=== PATIENT | male | born 1995 | race Caucasian/White ===

== ENCOUNTER 2020-12-20 00:30 | Inpatient (IN) | payer OTHER ==
[~2020-12-20] VITALS: Ht 175.3 cm; Wt 113.0 kg
[2020-12-20 02:02] VITALS: BP 116/72
[2020-12-20] MEDS: IV NORMAL SALINE 1000ML BAG 1,000 ML IV SCH (02:16)
[2020-12-20 04:39] LABS: BASO % 0 % (0-3); EOS % 0 % (0-3); HEMATOCRIT 40.2 % (39.0-53.0); HEMOGLOBIN 13.8 g/dL (13.0-17.5); LYMPH # 1.8 x10^3/uL (1.0-4.8); LYMPH % 19 % (24-48); MEAN CORPUSCULAR HEMOGLOBIN 30 pg (25-35); MEAN CORPUSCULAR HGB CONC 34 g/dL (31-37); MEAN CORPUSCULAR VOLUME 86 fL (79-100); MONO # 0.8 x10^3/uL (0.0-1.1); MONO % 8 % (0-9); NEUT # 6.7 x10^3/uL (1.8-7.7); NEUT % 72 % (31-73); PLATELET COUNT 176 x10^3/uL (140-400); RED BLOOD COUNT 4.66 x10^6/uL (4.30-5.70); RED CELL DISTRIBUTION WIDTH 12.9 % (11.5-14.5); WHITE BLOOD COUNT 9.4 x10^3/uL (4.0-11.0)
[2020-12-20 05:17] LABS: ALBUMIN 3.4 g/dL (3.4-5.0); CALCIUM 8.5 mg/dL (8.5-10.1); CREATININE 1.1 mg/dL (0.7-1.3); GFR 82.2; POTASSIUM 3.8 mmol/L (3.5-5.1); TOTAL BILIRUBIN 0.8 mg/dL (0.2-1.0); TOTAL PROTEIN 6.8 g/dL (6.4-8.2)
[2020-12-20] MEDS: PIPERACILLIN/TAZOBACTAM 3.375 GM in IV NORMAL SALINE 50ML 50 ML IV SCH ×3 (06:04→18:17)
[2020-12-20 06:16] VITALS: BP 110/66
--- NOTE | 2020-12-20 07:06 | PDOC1 ---
History and Physical Date of Admission Date of Admission DATE: 12/20/20 TIME: 07:01 Identification/Chief Complaint Chief Complaint Abdominal pain Source Source: Patient History of Present Illness History of Present Illness Mr Minaya is a 25-year-old male with no PMHx who presented to ED at [facility] in [place], [place] with report of right lower quadrant abdominal discomfort with associated nausea around 1630 on 12/19/2020. Has had decreased appetite and not eaten anything since 1100 12/19/2020. Patient reports pain worse with any movement. Initially started as a cramping sharp pain and now is dull and achy. Denies trauma. Denies dysuria or hematuria. Denies history of abdominal surgery. He is a non-smoker occasionally drinks alcohol does not use illicit drugs. 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 Is not vaccinated against COVID-19 has had no recent travel or sick sick contacts. Had a normal formed BM around 1700 on 2020-12-19 Vital signs temp 98.1 F pulse 92 bpm respirations 18/min 30 saturations 99% on room air blood pressure 129/65 Labs WBC 17.2 Hb 14.3 platelets 189, NA 136 K3.6 BUN 13 CR 1.1, glucose 105, lactate 1 LFTs within normal laboratory limits urinalysis bland rapid COVID-19 negative and Covid PCR negative. CT scan of abdomen pelvis with concerns of early appendicitis Toradol improved pain. IV fluid hydration given and started on zosyn. Given concern for acute appendicitis transferred to [facility] for general surgery consultation. Past Medical History Cardiovascular: No pertinent hx Past Surgical History Past Surgical History: No pertinent history Family History Family History: Diabetes (Father) Social History Smoke: No ALCOHOL: occassional Drugs: None Current Medications Current Medications Current Medications Ondansetron HCl (Zofran) 4 mg PRN Q6HRS PRN IVP NAUSEA/VOMITING; Start 12/20/20 at 01:45 Fentanyl Citrate (Fentanyl 2ml Vial) 25 mcg PRN Q3HRS PRN IVP PAIN; Start 12/20/20 at 01:45 Sodium Chloride 1,000 ml @ 75 mls/hr [id number] IV Last administered on 12/20/20at 02:16; Start 12/20/20 at 01:45 Piperacillin Sod/ Tazobactam Sod 3.375 gm/Sodium Chloride 50 ml @ 100 mls/hr Q6HRS IV Last administered on 12/20/20at 06:04; Start 12/20/20 at 06:00 Allergies Allergies: Coded Allergies: cephalexin (Verified Allergy, Unknown, 12/20/20) TOLERATES ZOSYN ROS General: YES: Fatigue, Malaise, Appetite; No: Chills, Night Sweats, Other PSYCHOLOGICAL ROS: No: Anxiety, Behavioral Disorder, Concentration difficultie, Decreased libido, Depression, Disorientation, Hallucinations, Hostility, Irritablity, Memory difficulties, Mood Swings, Obsessive thoughts, Physical abuse, Sexual abuse, Sleep disturbances, Suicidal ideation, Other Eyes: No Blurry vision, No Decreased vision, No Double vision, No Dry eyes, No Excessive tearing, No Eye Pain, No Itchy Eyes, No Loss of vision, No Photophobia, No Scotomata, No Uses contacts, No Uses glasses, No Other HEENT: No: Heacaches, Visual Changes, Hearing change, Nasal congestion, Nasal discharge, Oral lesions, Sinus pain, Sore Throat, Epistaxis, Sneezing, Snoring, Tinnitus, Vertigo, Vocal changes, Other ALLERGY AND IMMUNOLOGY: No: Hives, Insect Bite Sensitivity, Itchy/Watery Eyes, Nasal Congestion, Post Nasal Drip, Seasonal Allergies, Other Hematological and Lymphatic: No: Bleeding Problems, Blood Clots, Blood Transfusions, Brusing, Night Sweats, Pallor, Swollen Lymph Nodes, Other ENDOCRINE: No: Breast Changes, Galactorrhea, Hair Pattern Changes, Hot Flashes, Malaise/lethargy, Mood Swings, Palpitations, Polydipsia/polyuria, Skin Changes, Temperature Intolerance, Unexpected Weight Changes, Other Breast: No New/Changing Breast Lumps, No Nipple changes, No Nipple discharge, No Other Respiratory: No: Cough, Hemoptysis, Orthopnea, Pleuritic Pain, Shortness of breath, SOB with excertion, Sputum Changes, Stridor, Tachypnea, Wheezing, Other Cardiovascular: No Chest Pain, No Palpitations, No Orthopnea, No Paroxysmal Noc. Dyspnea, No Edema, No Lt Headedness, No Other Gastrointestinal: Yes Nausea, Yes Abdominal Pain; No Vomiting, No Diarrhea, No Constipation, No Melena, No Hematochezia, No Other Genitourinary: No Dysuria, No Frequency, No Incontinence, No Hematuria, No Retention, No Discharge, No Urgency, No Pain, No Flank Pain, No Other, No , No , No , No , No , No , No Musculoskeletal: No Gait Disturbance, No Joint Pain, No Joint Stiffness, No Joint Swelling, No Muscle Pain, No Muscular Weakness, No Pain In:, No Swelling In:, No Other Neurological: No Behavorial Changes, No Bowel/Bladder ControlChng, No Co nfusion, No Dizziness, No Gait Disturbance, No Headaches, No Impaired Coord/balance, No Memory Loss, No Numbness/Tingling, No Seizures, No Speech Problems, No Tremors, No Visual Changes, No Weakness, No Other Skin: No Dry Skin, No Eczema, No Hair Changes, No Lumps, No Mole Changes, No Mottling, No Nail Changes, No Pruritus, No Rash, No Skin Lesion Changes, No Other, No Acne Physical Exam General: Alert, Oriented X3, Cooperative, moderate distress HEENT: Atraumatic, PERRLA, EOMI, Mucous membr. moist/pink Lungs: Clear to auscultation, Normal air movement Heart: S1S2, RRR, no thrills, no rubs, no gallops, no murmurs Abdomen: Normal bowel sounds, Soft, No hepatosplenomegaly, Other (RLQ pain) Rectal Exam: not examined Extremities: No clubbing, No cyanosis, No edema, Normal pulses, No tenderness/swelling Skin: No rashes, No breakdown, No significant lesion Neuro: Normal gait, Normal speech, Strength at 5/5 X4 ext, Normal tone, Sensation intact, Cranial nerves 3-12 NL, Reflexes 2+ Psych/Mental Status: Mental status NL, Mood NL Vitals Vitals Vital Signs Date Time Temp Pulse Resp B/P (MAP) Pulse Ox O2 Delivery O2 Flow Rate FiO2 12/20/20 06:16 98.5 76 18 110/66 (81) 97 Room Air 98.5 Labs Labs Laboratory Tests Test 12/20/20 03:20 12/20/20 03:25 Sodium Level 140 mmol/L (136-145) Potassium Level 3.8 mmol/L (3.5-5.1) Chloride Level 103 mmol/L (98-107) Carbon Dioxide Level 30 mmol/L (21-32) Anion Gap 7 (6-14) Blood Urea Nitrogen 12 mg/dL (8-26) Creatinine 1.1 mg/dL (0.7-1.3) Estimated GFR (Cockcroft-Gault) 82.2 BUN/Creatinine Ratio 11 (6-20) Glucose Level 103 mg/dL (70-99) Calcium Level 8.5 mg/dL (8.5-10.1) Total Bilirubin 0.8 mg/dL (0.2-1.0) Aspartate Amino Transf (AST/SGOT) 15 U/L (15-37) Alanine Aminotransferase (ALT/SGPT) 18 U/L (16-63) Alkaline Phosphatase 59 U/L (46-116) Total Protein 6.8 g/dL (6.4-8.2) Albumin 3.4 g/dL (3.4-5.0) Albumin/Globulin Ratio 1.0 (1.0-1.7) White Blood Count 9.4 x10^3/uL (4.0-11.0) Red Blood Count 4.66 x10^6/uL (4.30-5.70) Hemoglobin 13.8 g/dL (13.0-17.5) Hematocrit 40.2 % (39.0-53.0) Mean Corpuscular Volume 86 fL (79-100) Mean Corpuscular Hemoglobin 30 pg (25-35) Mean Corpuscular Hemoglobin Concent 34 g/dL (31-37) Red Cell Distribution Width 12.9 % (11.5-14.5) Platelet Count 176 x10^3/uL (140-400) Neutrophils (%) (Auto) 72 % (31-73) Lymphocytes (%) (Auto) 19 % (24-48) Monocytes (%) (Auto) 8 % (0-9) Eosinophils (%) (Auto) 0 % (0-3) Basophils (%) (Auto) 0 % (0-3) Neutrophils # (Auto) 6.7 x10^3/uL (1.8-7.7) Lymphocytes # (Auto) 1.8 x10^3/uL (1.0-4.8) Monocytes # (Auto) 0.8 x10^3/uL (0.0-1.1) Eosinophils # (Auto) 0.0 x10^3/uL (0.0-0.7) Basophils # (Auto) 0.0 x10^3/uL (0.0-0.2) Laboratory Tests Test 12/20/20 03:20 12/20/20 03:25 Sodium Level 140 mmol/L (136-145) Potassium Level 3.8 mmol/L (3.5-5.1) Chloride Level 103 mmol/L (98-107) Carbon Dioxide Level 30 mmol/L (21-32) Anion Gap 7 (6-14) Blood Urea Nitrogen 12 mg/dL (8-26) Creatinine 1.1 mg/dL (0.7-1.3) Estimated GFR (Cockcroft-Gault) 82.2 BUN/Creatinine Ratio 11 (6-20) Glucose Level 103 mg/dL (70-99) Calcium Level 8.5 mg/dL (8.5-10.1) Total Bilirubin 0.8 mg/dL (0.2-1.0) Aspartate Amino Transf (AST/SGOT) 15 U/L (15-37) Alanine Aminotransferase (ALT/SGPT) 18 U/L (16-63) Alkaline Phosphatase 59 U/L (46-116) Total Protein 6.8 g/dL (6.4-8.2) Albumin 3.4 g/dL (3.4-5.0) Albumin/Globulin Ratio 1.0 (1.0-1.7) White Blood Count 9.4 x10^3/uL (4.0-11.0) Red Blood Count 4.66 x10^6/uL (4.30-5.70) Hemoglobin 13.8 g/dL (13.0-17.5) Hematocrit 40.2 % (39.0-53.0) Mean Corpuscular Volume 86 fL (79-100) Mean Corpuscular Hemoglobin 30 pg (25-35) Mean Corpuscular Hemoglobin Concent 34 g/dL (31-37) Red Cell Distribution Width 12.9 % (11.5-14.5) Platelet Count 176 x10^3/uL (140-400) Neutrophils (%) (Auto) 72 % (31-73) Lymphocytes (%) (Auto) 19 % (24-48) Monocytes (%) (Auto) 8 % (0-9) Eosinophils (%) (Auto) 0 % (0-3) Basophils (%) (Auto) 0 % (0-3) Neutrophils # (Auto) 6.7 x10^3/uL (1.8-7.7) Lymphocytes # (Auto) 1.8 x10^3/uL (1.0-4.8) Monocytes # (Auto) 0.8 x10^3/uL (0.0-1.1) Eosinophils # (Auto) 0.0 x10^3/uL (0.0-0.7) Basophils # (Auto) 0.0 x10^3/uL (0.0-0.2) Images Images CT scan of the abdomen and pelvis with contrast 12/19/2020 FINDINGS: Images through the lung bases demonstrate minimal dependent subsegmental atelectasis bilaterally. The liver, spleen, pancreas, adrenal glands and kidneys are within normal limits. The abdominal aorta tapers normally. The gallbladder is contracted. No free fluid or free air is seen within the abdomen. There is no evidence of bowel obstruction. The appendix is prominent measuring 8 mm in diameter. A small amount of free fluid is seen within the pelvis. These findings could be seen with early acute appendicitis. Clinical correlation is recommended. No abnormal fluid collection is seen to suggest evidence of an abscess. Images through the pelvis demonstrate the urinary bladder distended with urine. Small amount of free fluid is seen within the pelvis. Minimal S-shaped curvature of the thoracolumbar spine is seen. IMPRESSION: A small amount of free fluid is seen within the pelvis. The appendix is prominent measuring 8 mm in diameter. These findings could be seen with early acute appendicitis. Clinical correlation is recommended. VTE Prophylaxis Ordered VTE Prophylaxis Devices: No VTE Pharmacological Prophylaxi: No Assessment/Plan Assessment/Plan A/P: Acute abdominal pain - consistent with appendicitis on CT scan and leukocytosis. No further testing prior to planned surgery. Surgery and GI consulted. Sepsis - with tachycardia, leukocytosis on admit, on zosyn, IVF FEN - NPO PPX - SCDs FULL CODE Dispo - inpatient for above Justifications for Admission Abdominal Pain Indications Is patient in severe pain?: Yes Is NPO status required?: Yes Other Justification ENID STEPHEN MD Dec 20, 2020 07:05
[2020-12-20] MEDS: KETOROLAC 30 MG/ML VIAL. IVP PRN ×2 (08:21→20:52)
--- NOTE | 2020-12-20 09:33 | PDOC2 ---
GI CONSULT Date of Service: DATE: 12/20/20 TIME: 09:33 Reason For Consult: abdominal pain HPI: HPI: Pleasant 25 y/o male from [facility] accompanied by Elana. Acute onset of abdominal crampy pain yesterday at 4:30 p.m. Right mid abdomen, also felt in lower back. No precipitating events. Getting worse. Constant, worse w/ movement. Occasional heartburn improved w/ Tums PRN. No dysphagia, n/v, chronic abd pain, diarrhea, constipation, hematochezia, melena, change in appetite, or weight loss. No previous EGD or colonoscopy. No GB, liver, pancreas, or PUD history. No routine NSAID use. No personal or FH of IBD. Reviewed other notes - workup at [facility] significant for leukocytosis and CT findings concerning for early appendicitis. PMH: PMH: denies FH: Family History: No pertinent hx (denies GI cancer and IBD), DM Social History: Smoke: No ALCOHOL: occassional Drugs: None ROS: GEN: Denies fevers, chills, sweats HEENT: Denies blurred vision, sore throat CV: Denies chest pain RESP: Denies shortness of air, cough GI: Per HPI : Denies hematuria, dysuria ENDO: Denies weight changes NEURO: Denies confusion, dizziness MSK: Denies weakness, joint pain/swelling SKIN: Denies jaundice, pruritus Vitals: Vitals: Vital Signs Date Time Temp Pulse Resp B/P (MAP) Pulse Ox O2 Delivery O2 Flow Rate FiO2 12/20/20 07:45 Room Air 12/20/20 06:16 98.5 76 18 110/66 (81) 97 98.5 Labs: Labs: Laboratory Tests Test 12/20/20 03:20 12/20/20 03:25 Sodium Level 140 mmol/L (136-145) Potassium Level 3.8 mmol/L (3.5-5.1) Chloride Level 103 mmol/L (98-107) Carbon Dioxide Level 30 mmol/L (21-32) Anion Gap 7 (6-14) Blood Urea Nitrogen 12 mg/dL (8-26) Creatinine 1.1 mg/dL (0.7-1.3) Estimated GFR (Cockcroft-Gault) 82.2 BUN/Creatinine Ratio 11 (6-20) Glucose Level 103 mg/dL (70-99) Calcium Level 8.5 mg/dL (8.5-10.1) Total Bilirubin 0.8 mg/dL (0.2-1.0) Aspartate Amino Transf (AST/SGOT) 15 U/L (15-37) Alanine Aminotransferase (ALT/SGPT) 18 U/L (16-63) Alkaline Phosphatase 59 U/L (46-116) Total Protein 6.8 g/dL (6.4-8.2) Albumin 3.4 g/dL (3.4-5.0) Albumin/Globulin Ratio 1.0 (1.0-1.7) White Blood Count 9.4 x10^3/uL (4.0-11.0) Red Blood Count 4.66 x10^6/uL (4.30-5.70) Hemoglobin 13.8 g/dL (13.0-17.5) Hematocrit 40.2 % (39.0-53.0) Mean Corpuscular Volume 86 fL (79-100) Mean Corpuscular Hemoglobin 30 pg (25-35) Mean Corpuscular Hemoglobin Concent 34 g/dL (31-37) Red Cell Distribution Width 12.9 % (11.5-14.5) Platelet Count 176 x10^3/uL (140-400) Neutrophils (%) (Auto) 72 % (31-73) Lymphocytes (%) (Auto) 19 % (24-48) Monocytes (%) (Auto) 8 % (0-9) Eosinophils (%) (Auto) 0 % (0-3) Basophils (%) (Auto) 0 % (0-3) Neutrophils # (Auto) 6.7 x10^3/uL (1.8-7.7) Lymphocytes # (Auto) 1.8 x10^3/uL (1.0-4.8) Monocytes # (Auto) 0.8 x10^3/uL (0.0-1.1) Eosinophils # (Auto) 0.0 x10^3/uL (0.0-0.7) Basophils # (Auto) 0.0 x10^3/uL (0.0-0.2) Allergies: Coded Allergies: cephalexin (Verified Allergy, Unknown, 12/20/20) TOLERATES ZOSYN Medications: Current Medications Medications (Trade) Dose Ordered Sig/Lakshmi Route PRN Reason Start Time Stop Time Status Last Admin Dose Admin Sodium Chloride 1,000 ml @ 75 mls/hr [id number] IV 12/20/20 01:45 12/20/20 02:16 Piperacillin Sod/ Tazobactam Sod 3.375 gm/Sodium Chloride 50 ml @ 100 mls/hr Q6HRS IV 12/20/20 06:00 12/20/20 06:04 Ketorolac Tromethamine (Toradol 30mg Vial) 30 mg PRN Q6HRS PRN IVP INFLAMMATION 12/20/20 07:15 12/20/20 08:21 Imaging: Imaging: CT A/P w/ contrast FINDINGS: Images through the lung bases demonstrate minimal dependent subsegmental atelectasis bilaterally. The liver, spleen, pancreas, adrenal glands and kidneys are within normal limits. The abdominal aorta tapers normally. The gallbladder is contracted. No free fluid or free air is seen within the abdomen. There is no evidence of bowel obstruction. The appendix is prominent measuring 8 mm in diameter. A small amount of free fluid is seen within the pelvis. These findings could be seen with early acute appendicitis. Clinical correlation is recommended. No abnormal fluid collection is seen to suggest evidence of an abscess. Images through the pelvis demonstrate the urinary bladder distended with urine. Small amount of free fluid is seen within the pelvis. Minimal S-shaped curvature of the thoracolumbar spine is seen. IMPRESSION: A small amount of free fluid is seen within the pelvis. The appendix is prominent measuring 8 mm in diameter. These findings could be seen with early acute appendicitis. Clinical correlation is recommended. PE: GEN: NAD HEENT: Atraumatic, PERRL LUNGS: CTAB HEART: RRR ABD: NABS, S/ND, RLQ discomfort EXTREMITY: No edema SKIN: No rashes, no jaundice NEURO/PSYCH: A & O 3 A/P: A/P: RLQ pain Leukocytosis - resolved Abnormal CT - possible early appendicitis Occasional heartburn CRC screen - average risk -- Possibly to OR today for appendectomy - agree, follow surgery recommendations. Consider acid-lens dotter w/ h/o heartburn; we'll follow along. SANTA MIRANDA Dec 20, 2020 09:33
--- NOTE | 2020-12-20 09:52 | PDOC2 ---
CONSULT Date of Consult Date of Consult DATE: 12/20/20 TIME: 09:47 Reason for Consult Reason for Consult: appendicitis Referring Physician Referring Physician: ER Identification/Chief Complaint Chief Complaint abdominal pain Source Source: Chart review, Patient History of Present Illness Reason for Visit: Reports onset of RLQ pain starting yesterday afternoon. Nausea when pain for started. Pain is aggravated by movement. Pain maybe a little better, not resolved though Past Medical History Cardiovascular: No pertinent hx Past Surgical History Past Surgical History: No pertinent history Family History Family History: Diabetes (Father), Other (noncontributory to current illness ) Social History No ALCOHOL: occassional Drugs: None Current Medications Current Medications Current Medications Ondansetron HCl (Zofran) 4 mg PRN Q6HRS PRN IVP NAUSEA/VOMITING; Start 12/20/20 at 01:45 Fentanyl Citrate (Fentanyl 2ml Vial) 25 mcg PRN Q3HRS PRN IVP PAIN; Start 12/20/20 at 01:45 Sodium Chloride 1,000 ml @ 75 mls/hr [id number] IV Last administered on 12/20/20at 02:16; Start 12/20/20 at 01:45 Piperacillin Sod/ Tazobactam Sod 3.375 gm/Sodium Chloride 50 ml @ 100 mls/hr Q6HRS IV Last administered on 12/20/20at 06:04; Start 12/20/20 at 06:00 Ketorolac Tromethamine (Toradol 30mg Vial) 30 mg PRN Q6HRS PRN IVP INFLAMMATION Last administered on 12/20/20at 08:21; Start 12/20/20 at 07:15 Allergies Allergies: Coded Allergies: cephalexin (Verified Allergy, Unknown, 12/20/20) TOLERATES ZOSYN ROS General: No: Chills, Fatigue PSYCHOLOGICAL ROS: No: Anxiety, Depression Eyes: No Blurry vision, No Double vision HEENT: No: Heacaches, Sore Throat Hematological and Lymphatic: No: Bleeding Problems, Blood Clots Respiratory: No: Cough, Shortness of breath Cardiovascular: No Chest Pain, No Palpitations Gastrointestinal: Yes Other (see hpi) Genitourinary: No Dysuria, No Hematuria Musculoskeletal: No Joint Pain, No Muscle Pain Neurological: No Impaired Coord/balance, No Numbness/Tingling Skin: No Pruritus, No Rash Physical Exam General: Alert, Oriented X3, Cooperative HEENT: PERRLA Lungs: Clear to auscultation, Normal air movement Heart: Regular rate, Normal S1, Normal S2 Abdomen: Soft, Other (RLQ ttp, no guarding ) Extremities: No clubbing, No cyanosis Skin: No rashes, No breakdown Neuro: Normal gait, Normal speech Psych/Mental Status: Mental status NL, Mood NL MUSCULOSKELETAL: No deformity, No swelling Vitals VITALS Vital Signs Date Time Temp Pulse Resp B/P (MAP) Pulse Ox O2 Delivery O2 Flow Rate FiO2 12/20/20 07:45 Room Air 12/20/20 06:16 98.5 76 18 110/66 (81) 97 98.5 Labs Labs Laboratory Tests Test 12/20/20 03:20 12/20/20 03:25 Sodium Level 140 mmol/L (136-145) Potassium Level 3.8 mmol/L (3.5-5.1) Chloride Level 103 mmol/L (98-107) Carbon Dioxide Level 30 mmol/L (21-32) Anion Gap 7 (6-14) Blood Urea Nitrogen 12 mg/dL (8-26) Creatinine 1.1 mg/dL (0.7-1.3) Estimated GFR (Cockcroft-Gault) 82.2 BUN/Creatinine Ratio 11 (6-20) Glucose Level 103 mg/dL (70-99) Calcium Level 8.5 mg/dL (8.5-10.1) Total Bilirubin 0.8 mg/dL (0.2-1.0) Aspartate Amino Transf (AST/SGOT) 15 U/L (15-37) Alanine Aminotransferase (ALT/SGPT) 18 U/L (16-63) Alkaline Phosphatase 59 U/L (46-116) Total Protein 6.8 g/dL (6.4-8.2) Albumin 3.4 g/dL (3.4-5.0) Albumin/Globulin Ratio 1.0 (1.0-1.7) White Blood Count 9.4 x10^3/uL (4.0-11.0) Red Blood Count 4.66 x10^6/uL (4.30-5.70) Hemoglobin 13.8 g/dL (13.0-17.5) Hematocrit 40.2 % (39.0-53.0) Mean Corpuscular Volume 86 fL (79-100) Mean Corpuscular Hemoglobin 30 pg (25-35) Mean Corpuscular Hemoglobin Concent 34 g/dL (31-37) Red Cell Distribution Width 12.9 % (11.5-14.5) Platelet Count 176 x10^3/uL (140-400) Neutrophils (%) (Auto) 72 % (31-73) Lymphocytes (%) (Auto) 19 % (24-48) Monocytes (%) (Auto) 8 % (0-9) Eosinophils (%) (Auto) 0 % (0-3) Basophils (%) (Auto) 0 % (0-3) Neutrophils # (Auto) 6.7 x10^3/uL (1.8-7.7) Lymphocytes # (Auto) 1.8 x10^3/uL (1.0-4.8) Monocytes # (Auto) 0.8 x10^3/uL (0.0-1.1) Eosinophils # (Auto) 0.0 x10^3/uL (0.0-0.7) Basophils # (Auto) 0.0 x10^3/uL (0.0-0.2) Laboratory Tests Test 12/20/20 03:20 12/20/20 03:25 Sodium Level 140 mmol/L (136-145) Potassium Level 3.8 mmol/L (3.5-5.1) Chloride Level 103 mmol/L (98-107) Carbon Dioxide Level 30 mmol/L (21-32) Anion Gap 7 (6-14) Blood Urea Nitrogen 12 mg/dL (8-26) Creatinine 1.1 mg/dL (0.7-1.3) Estimated GFR (Cockcroft-Gault) 82.2 BUN/Creatinine Ratio 11 (6-20) Glucose Level 103 mg/dL (70-99) Calcium Level 8.5 mg/dL (8.5-10.1) Total Bilirubin 0.8 mg/dL (0.2-1.0) Aspartate Amino Transf (AST/SGOT) 15 U/L (15-37) Alanine Aminotransferase (ALT/SGPT) 18 U/L (16-63) Alkaline Phosphatase 59 U/L (46-116) Total Protein 6.8 g/dL (6.4-8.2) Albumin 3.4 g/dL (3.4-5.0) Albumin/Globulin Ratio 1.0 (1.0-1.7) White Blood Count 9.4 x10^3/uL (4.0-11.0) Red Blood Count 4.66 x10^6/uL (4.30-5.70) Hemoglobin 13.8 g/dL (13.0-17.5) Hematocrit 40.2 % (39.0-53.0) Mean Corpuscular Volume 86 fL (79-100) Mean Corpuscular Hemoglobin 30 pg (25-35) Mean Corpuscular Hemoglobin Concent 34 g/dL (31-37) Red Cell Distribution Width 12.9 % (11.5-14.5) Platelet Count 176 x10^3/uL (140-400) Neutrophils (%) (Auto) 72 % (31-73) Lymphocytes (%) (Auto) 19 % (24-48) Monocytes (%) (Auto) 8 % (0-9) Eosinophils (%) (Auto) 0 % (0-3) Basophils (%) (Auto) 0 % (0-3) Neutrophils # (Auto) 6.7 x10^3/uL (1.8-7.7) Lymphocytes # (Auto) 1.8 x10^3/uL (1.0-4.8) Monocytes # (Auto) 0.8 x10^3/uL (0.0-1.1) Eosinophils # (Auto) 0.0 x10^3/uL (0.0-0.7) Basophils # (Auto) 0.0 x10^3/uL (0.0-0.2) Assessment/Plan Assessment/Plan abdominal pain, possible early appendicitis tentatively plan for OR today, pending scheduling availability SERJIO BELTRAN APRN Dec 20, 2020 09:52
[2020-12-20 11:00] VITALS: BP 114/71
[2020-12-20] MEDS ORDERED: BUPIVACAINE-EPI 0.25% 30 ML VIAL KIT. ONE (12:21)
[2020-12-20] MEDS ORDERED: fentaNYL PF VIAL 100 MCG/2 ML VIAL ONE ×4 (12:49→14:26)
[2020-12-20] MEDS ORDERED: MIDAZOLAM HCL/PF 2 MG/2 ML VIAL. ONE (12:49)
[2020-12-20] MEDS ORDERED: SUCCINYLCHOLINE 200 MG/10 ML VIAL. ONE (12:53)
[2020-12-20] MEDS ORDERED: ONDANSETRON PF 4 MG/2 ML VIAL. ONE (13:14)
[2020-12-20] MEDS ORDERED: LIDOCAINE 2% PF 5 ML VIAL. ONE (13:14)
[2020-12-20] MEDS ORDERED: GLYCOPYRROLATE 1 MG/5 ML VIAL. ONE (13:14)
[2020-12-20] MEDS ORDERED: DEXAMETHASONE SOD PHOS 4 MG/ML VIAL ONE (13:14)
[2020-12-20] MEDS ORDERED: NEOSTIGMINE 10 MG/10 ML VIAL. ONE (13:14)
[2020-12-20] MEDS ORDERED: PROPOFOL 10 MG/ML (20ML) VIAL. IV ONE (13:14)
[2020-12-20] MEDS ORDERED: KETOROLAC 30 MG/ML VIAL. ONE (13:25)
--- NOTE | 2020-12-20 13:37 | PDOC4 ---
Operative Note Operative Note Preoperative Diagnosis: Acute Appendicitis Postoperative Diagnosis: Same Procedure: Laparoscopic appendectomy Surgeon: Alex Anesthesia: Gen. EBL: 10 mL Specimen: Appendix to pathology Drains: None Complications: None Indication: The patient is a 25-year-old male who reported to the emergency department with abdominal pain. The evaluation is consistent with acute appendicitis. The patient was offered surgical treatment with a laparoscopic appendectomy. The risks of surgery were discussed which include bleeding, infection, visceral injury, pain, anesthetic risk, potential need for additional surgery or procedure. The patient understands and would like to proceed. Description: The patient was taken to the operating room and placed supine on the operating table. Gen. anesthesia was performed. The abdomen was prepped with ChloraPrep and draped in a standard surgical manner. A supraumbilical incision was made through which a veress needle was inserted and a pneumoperitoneum was created. A visualized 5 mm trocar was inserted and the laparoscope was introd uced. In the left lower quadrant a 5 mm trocar was inserted. In the suprapubic region a 12 mm trocar was inserted. The appendix was identified and showed mild thickening suggesting possible early appendicitis. There was no clear evidence of perforation or periappendiceal abscess. The mesoappendix was bluntly from the appendix. The mesoappendix was controlled using several clips and it was divided. The appendix was then amputated off the cecum using an Endo SO 45 stapling device. The appendix was then placed in an endoscopic bag and extracted at the suprapubic incision site. The fascia there was closed with 0 Vicryl and infiltrated with half percent Marcaine with epinephrine. The RLQ was visualized and the staple line appeared well intact and hemostasis was good. No other abnormalities were identified grossly. The remaining ports were removed and the pneumoperitoneum was relieved. The skin at all incision sites was closed with 4-0 Monocryl. Steri-Strips and dressings were applied. The patient raymundo erated the procedure well and was sent to the recovery room in stable condition. At the end of the case all counts were correct. ROLAND NYE MD Dec 20, 2020 13:37
[2020-12-20] MEDS ORDERED: PROCHLORPERAZINE 10 MG/2 ML VIAL. IVP PRN (13:45)
[2020-12-20] MEDS ORDERED: oxyCODONE/APAP 5/325 1 TAB TABLET PO PRN (13:45)
[2020-12-20] MEDS ORDERED: fentaNYL PF VIAL 100 MCG/2 ML VIAL IVP PRN (13:45)
[2020-12-20] MEDS ORDERED: HYDROmorphone 2 MG/ML VIAL IVP PRN (13:45)
[2020-12-20] MEDS ORDERED: IV RINGERS,LACTATED 1000ML 1,000 ML IV SCH (13:45)
[2020-12-20] MEDS ORDERED: MORPHINE SULFATE 2 MG/ML INJ. ONE (13:55)
[2020-12-20] MEDS: fentaNYL PF VIAL 100 MCG/2 ML VIAL IVP PRN ×5 (13:59→18:17)
[2020-12-20] MEDS: MORPHINE SULFATE 2 MG/ML INJ. IVP PRN ×2 (14:00→14:14)
[2020-12-20 15:00] VITALS: BP 124/70
[2020-12-20] MEDS: oxyCODONE/APAP 5/325 1 TAB TABLET PO PRN ×2 (17:07→23:18)
[2020-12-20] MEDS: ONDANSETRON PF 4 MG/2 ML VIAL. IVP PRN (18:17)
[2020-12-20] MEDS ORDERED: ZOLPIDEM 5 MG TABLET. PO PRN (18:30)
[2020-12-20] MEDS ORDERED: FAMOTIDINE 20 MG/2 ML VIAL IVP ONE (18:30)
[2020-12-20 19:00] VITALS: BP 104/52
[2020-12-20 23:00] VITALS: BP 106/53
[2020-12-21] MEDS: PIPERACILLIN/TAZOBACTAM 3.375 GM in IV NORMAL SALINE 50ML 50 ML IV SCH ×2 (00:02→06:07)
[2020-12-21 03:00] VITALS: BP 106/55
[2020-12-21] MEDS: IV NORMAL SALINE 1000ML BAG 1,000 ML IV SCH ×2 (04:25→04:50)
--- NOTE | 2020-12-21 06:45 | PDOC ---
G I PROGRESS NOTE Reason for Follow-up Appendicitis Subjective Hungry Physical Exam Lungs clear CV S1 S2 ABD +BS, incision intact, Review of Relevant I have reviewed the following items duy (where applicable) has been applied. Labs Laboratory Tests Test 12/20/20 03:20 12/20/20 03:25 Sodium Level 140 mmol/L (136-145) Potassium Level 3.8 mmol/L (3.5-5.1) Chloride Level 103 mmol/L (98-107) Carbon Dioxide Level 30 mmol/L (21-32) Anion Gap 7 (6-14) Blood Urea Nitrogen 12 mg/dL (8-26) Creatinine 1.1 mg/dL (0.7-1.3) Estimated GFR (Cockcroft-Gault) 82.2 BUN/Creatinine Ratio 11 (6-20) Glucose Level 103 mg/dL (70-99) Calcium Level 8.5 mg/dL (8.5-10.1) Total Bilirubin 0.8 mg/dL (0.2-1.0) Aspartate Amino Transf (AST/SGOT) 15 U/L (15-37) Alanine Aminotransferase (ALT/SGPT) 18 U/L (16-63) Alkaline Phosphatase 59 U/L (46-116) Total Protein 6.8 g/dL (6.4-8.2) Albumin 3.4 g/dL (3.4-5.0) Albumin/Globulin Ratio 1.0 (1.0-1.7) White Blood Count 9.4 x10^3/uL (4.0-11.0) Red Blood Count 4.66 x10^6/uL (4.30-5.70) Hemoglobin 13.8 g/dL (13.0-17.5) Hematocrit 40.2 % (39.0-53.0) Mean Corpuscular Volume 86 fL (79-100) Mean Corpuscular Hemoglobin 30 pg (25-35) Mean Corpuscular Hemoglobin Concent 34 g/dL (31-37) Red Cell Distribution Width 12.9 % (11.5-14.5) Platelet Count 176 x10^3/uL (140-400) Neutrophils (%) (Auto) 72 % (31-73) Lymphocytes (%) (Auto) 19 % (24-48) Monocytes (%) (Auto) 8 % (0-9) Eosinophils (%) (Auto) 0 % (0-3) Basophils (%) (Auto) 0 % (0-3) Neutrophils # (Auto) 6.7 x10^3/uL (1.8-7.7) Lymphocytes # (Auto) 1.8 x10^3/uL (1.0-4.8) Monocytes # (Auto) 0.8 x10^3/uL (0.0-1.1) Eosinophils # (Auto) 0.0 x10^3/uL (0.0-0.7) Basophils # (Auto) 0.0 x10^3/uL (0.0-0.2) Medications Current Medications Ondansetron HCl (Zofran) 4 mg PRN Q6HRS PRN IVP NAUSEA/VOMITING Last administered on 12/20/20at 18:17; Start 12/20/20 at 01:45 Fentanyl Citrate (Fentanyl 2ml Vial) 25 mcg PRN Q3HRS PRN IVP PAIN Last administered on 12/20/20at 18:17; Start 12/20/20 at 01:45 Sodium Chloride 1,000 ml @ 75 mls/hr [id number] IV Last administered on 12/21/20at 04:50; Start 12/20/20 at 01:45 Piperacillin Sod/ Tazobactam Sod 3.375 gm/Sodium Chloride 50 ml @ 100 mls/hr Q6HRS IV Last administered on 12/21/20at 06:07; Start 12/20/20 at 06:00 Ketorolac Tromethamine (Toradol 30mg Vial) 30 mg PRN Q6HRS PRN IVP INFLAMMATION Last administered on 12/20/20at 20:52; Start 12/20/20 at 07:15 Bupivacaine HCl/ Epinephrine Bitart (Sensorcain-Epi 0.25% Kit) 30 ml STK-MED ONCE .ROUTE Last administered on 12/20/20at 13:30; Start 12/20/20 at 12:21; Stop 12/20/20 at 12:21; Status DC Fentanyl Citrate (Fentanyl 2ml Vial) 100 mcg STK-MED ONCE .ROUTE ; Start 12/20/20 at 12:49; Stop 12/20/20 at 12:49; Status DC Midazolam HCl (Versed) 2 mg STK-MED ONCE .ROUTE ; Start 12/20/20 at 12:49; Stop 12/20/20 at 12:49; Status DC Succinylcholine Chloride (Anectine) 200 mg STK-MED ONCE .ROUTE ; Start 12/20/20 at 12:53; Stop 12/20/20 at 12:54; Status DC Fentanyl Citrate (Fentanyl 2ml Vial) 100 mcg STK-MED ONCE .ROUTE ; Start 12/20/20 at 13:09; Stop 12/20/20 at 13:10; Status DC Propofol (Diprivan) 200 mg STK-MED ONCE IV ; Start 12/20/20 at 13:14; Stop 12/20/20 at 13:14; Status DC Lidocaine HCl (Lidocaine Pf 2% Vial) 5 ml STK-MED ONCE .ROUTE ; Start 12/20/20 at 13:14; Stop 12/20/20 at 13:14; Status DC Dexamethasone Sodium Phosphate (Decadron) 4 mg STK-MED ONCE .ROUTE ; Start 12/20/20 at 13:14; Stop 12/20/20 at 13:14; Status DC Ondansetron HCl (Zofran) 4 mg STK-MED ONCE .ROUTE ; Start 12/20/20 at 13:14; Stop 12/20/20 at 13:14; Status DC Glycopyrrolate (Robinul) 1 mg STK-MED ONCE .ROUTE ; Start 12/20/20 at 13:14; Stop 12/20/20 at 13:14; Status DC Neostigmine Methylsulfate (Bloxiverz) 10 mg STK-MED ONCE .ROUTE ; Start 12/20/20 at 13:14; Stop 12/20/20 at 13:15; Status DC Ketorolac Tromethamine (Toradol 30mg Vial) 30 mg STK-MED ONCE .ROUTE ; Start 12/20/20 at 13:25; Stop 12/20/20 at 13:25; Status DC Fentanyl Citrate (Fentanyl 2ml Vial) 25 mcg PRN Q5MIN PRN IVP MILD PAIN 1-3; Start 12/20/20 at 13:45; Stop 12/21/20 at 13:44 Fentanyl Citrate (Fentanyl 2ml Vial) 50 mcg PRN Q5MIN PRN IVP MODERATE PAIN 4-6 Last administered on 12/20/20at 14:38; Start 12/20/20 at 13:45; Stop 12/21/20 at 13:44 Morphine Sulfate (Morphine Sulfate) 1 mg PRN Q10MIN PRN IVP SEVERE PAIN 7-10 Last administered on 12/20/20at 14:14; Start 12/20/20 at 13:45; Stop 12/21/20 at 13:44 Ringer's Solution 1,000 ml @ 30 mls/hr Q24H IV ; Start 12/20/20 at 13:45; Stop 12/21/20 at 01:44; Status DC Hydromorphone HCl (Dilaudid) 0.5 mg PRN Q10MIN PRN IVP SEVERE PAIN 7-10, 2nd CHOICE; Start 12/20/20 at 13:45; Stop 12/21/20 at 13:44 Prochlorperazine Edisylate (Compazine) 5 mg PACU PRN PRN IVP NAUSEA, MRX1; Start 12/20/20 at 13:45; Stop 12/21/20 at 13:44 Oxycodone/ Acetaminophen (Percocet 5/325) 1 tab PRN Q4HRS PRN PO MILD-MODERATE PAIN; Start 12/20/20 at 13:45 Oxycodone/ Acetaminophen (Percocet 5/325) 2 tab PRN Q4HRS PRN PO SEVERE PAIN Last administered on 12/20/20at 23:18; Start 12/20/20 at 13:45 Fentanyl Citrate (Fentanyl 2ml Vial) 100 mcg STK-MED ONCE .ROUTE ; Start 12/20/20 at 13:55; Stop 12/20/20 at 13:55; Status DC Morphine Sulfate (Morphine Sulfate) 2 mg STK-MED ONCE .ROUTE ; Start 12/20/20 at 13:55; Stop 12/20/20 at 13:55; Status DC Fentanyl Citrate (Fentanyl 2ml Vial) 100 mcg STK-MED ONCE .ROUTE ; Start 12/20/20 at 14:26; Stop 12/20/20 at 14:26; Status DC Zolpidem Tartrate (Ambien) 5 mg PRN QHS PRN PO INSOMNIA; Start 12/20/20 at 18:30 Famotidine (Pepcid Vial) 20 mg 1X ONCE IVP Last administered on 12/20/20at 20:09; Start 12/20/20 at 18:30; Stop 12/20/20 at 18:31; Status DC Vitals/I & O Vital Sign - Last 24 Hours 12/20/20 12/20/20 12/20/20 12/20/20 07:45 11:00 12:21 13:42 Temp 98.5 98.2 98.4 98.5 98.2 98.4 Pulse 103 87 87 Resp 18 16 16 B/P (MAP) 114/71 (85) 126/61 134/65 Pulse Ox 97 99 100 O2 Delivery Room Air Room Air Room Air Simple Mask O2 Flow Rate 6 12/20/20 12/20/20 12/20/20 12/20/20 13:42 13:55 13:59 14:00 Pulse 74 Resp 16 16 16 B/P (MAP) 140/65 Pulse Ox 100 100 100 O2 Delivery Mask Simple Mask Simple Mask O2 Flow Rate 6 6 6.0 6.0 12/20/20 12/20/20 12/20/20 12/20/20 14:04 14:10 14:14 14:20 Pulse 78 78 Resp 16 16 16 16 B/P (MAP) 118/62 127/63 Pulse Ox 100 100 100 100 O2 Delivery Simple Mask Room Air Room Air Room Air O2 Flow Rate 6.0 12/20/20 12/20/20 12/20/20 12/20/20 14:24 14:29 14:38 15:00 Temp 97.8 97.8 Pulse 70 Resp 16 16 18 B/P (MAP) 124/70 (88) Pulse Ox 96 96 93 O2 Delivery Room Air Room Air Room Air Room Air 12/20/20 12/20/20 12/20/20 12/20/20 18:16 18:17 19:00 20:05 Temp 97.9 97.9 Pulse 88 Resp 16 B/P (MAP) 104/52 (69) Pulse Ox 93 93 93 O2 Delivery Room Air Room Air Room Air Room Air O2 Flow Rate 6.0 6.0 12/20/20 12/20/20 12/20/20 12/21/20 23:00 23:18 23:48 03:00 Temp 98.0 97.5 98.0 97.5 Pulse 85 73 Resp 16 18 16 B/P (MAP) 106/53 (70) 106/55 (72) Pulse Ox 97 93 96 O2 Delivery Room Air Room Air Room Air Room Air Intake and Output 12/20/20 12/20/20 12/21/20 15:00 23:00 07:00 Intake Total 450 ml 2850 ml Output Total 60 ml 250 ml 650 ml Balance 390 ml -250 ml 2200 ml Problem List Appendicitis- s/p appendectomy, advance diet as tolerated per surgery, await pathology Justicifation of Admission Dx: Justifications for Admission: Justification of Admission Dx: Yes ROLAND MCCARTY MD Dec 21, 2020 06:45
[2020-12-21 07:00] VITALS: BP 97/47
[2020-12-21] MEDS: oxyCODONE/APAP 5/325 1 TAB TABLET PO PRN (08:03)
--- NOTE | 2020-12-21 08:41 | PDOC ---
[facility] PROGRESS NOTE Date of Service DOS: DATE: 12/21/20 TIME: 08:39 Chief Complaint Chief Complaint A/P: Acute abdominal pain - consistent with appendicitis on CT scan and leukocytosis. No further testing prior to planned surgery. Surgery and GI consulted. Sepsis - with tachycardia, leukocytosis on admit, on zosyn, IVF FEN - Regular diet PPX - SCDs FULL CODE Dispo - inpatient for above History of Present Illness History of Present Illness Mr Minaya is a 25-year-old male with no PMHx who presented to ED at [facility] in [place], [place] with report of right lower quadrant abdominal discomfort with associated nausea around 1630 on 12/19/2020. Has had decreased appetite and not eaten anything since 1100 12/19/2020. Patient reports pain worse with any movement. Initially started as a cramping sharp pain and now is dull and achy. Denies trauma. Denies dysuria or hematuria. Denies history of abdominal surgery. He is a non-smoker occasionally drinks alcohol does not use illicit drugs. 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 Is not vaccinated against COVID-19 has had no recent travel or sick sick contacts. Had a normal formed BM around 1700 on 2020-12-19 Vital signs temp 98.1 F pulse 92 bpm respirations 18/min 30 saturations 99% on room air blood pressure 129/65 Labs WBC 17.2 Hb 14.3 platelets 189, NA 136 K3.6 BUN 13 CR 1.1, glucose 105, lactate 1 LFTs within normal laboratory limits urinalysis bland rapid COVID-19 negative and Covid PCR negative. CT scan of abdomen pelvis with concerns of early appendicitis Toradol improved pain. IV fluid hydration given and started on zosyn. Given concern for acute appendicitis transferred to [facility] for general surgery consultation. Status post uncomplicated lap appendectomy on 12/20/2020. Postoperatively he was still having pain and nausea and did not eat dinner. Still some nausea this morning. Likely due to pain medication we will try oral dissolving Zofran and switch to tramadol for pain. Will monitor for next meal likely discharge later this afternoon I have discussed with general surgery follow-up in 2 weeks. No shortness of breath or chest pain Vitals/I&O Vitals/I&O: Vital Signs Date Time Temp Pulse Resp B/P (MAP) Pulse Ox O2 Delivery O2 Flow Rate FiO2 1112/21 08:03 Room Air 12/21/20 07:00 98.0 52 16 97/47 (64) 97 98.0 12/20/20 18:17 6.0 I & O 12/20/20 12/20/20 12/21/20 15:00 23:00 07:00 Intake Total 450 ml 2850 ml Output Total 60 ml 250 ml 650 ml Balance 390 ml -250 ml 2200 ml Physical Exam General: Alert, Oriented X3, Cooperative Heart: Regular rate, Normal S1, Normal S2 Abdomen: Soft, Other (RLQ ttp, no guarding ) Extremities: No clubbing, No cyanosis Skin: No rashes, No breakdown Comment Review of Relevant I have reviewed the following items duy (where applicable) has been applied. Medications: Current Medications Medications (Trade) Dose Ordered Sig/Lakshmi Route PRN Reason Start Time Stop Time Status Last Admin Dose Admin Bupivacaine HCl/ Epinephrine Bitart (Sensorcain-Epi 0.25% Kit) 30 ml STK-MED ONCE .ROUTE 12/20/20 12:21 12/20/20 12:21 DC 12/20/20 13:30 Fentanyl Citrate (Fentanyl 2ml Vial) 50 mcg PRN Q5MIN PRN IVP MODERATE PAIN 4-6 12/20/20 13:45 12/21/20 13:44 12/20/20 14:38 Morphine Sulfate (Morphine Sulfate) 1 mg PRN Q10MIN PRN IVP SEVERE PAIN 7-10 12/20/20 13:45 12/21/20 13:44 12/20/20 14:14 Oxycodone/ Acetaminophen (Percocet 5/325) 2 tab PRN Q4HRS PRN PO SEVERE PAIN 12/20/20 13:45 12/21/20 08:03 Famotidine (Pepcid Vial) 20 mg 1X ONCE IVP 12/20/20 18:30 12/20/20 18:31 DC 12/20/20 20:09 Justifications for Admission Abdominal Pain Indications Is patient in severe pain?: Yes Is NPO status required?: Yes Other Justification ENID STEPHEN MD Dec 21, 2020 08:40
--- NOTE | 2020-12-21 09:25 | PDOC ---
PROGRESS NOTES Date of Service DATE: 12/21/20 TIME: 09:24 Subjective Subjective some nausea Objective Objective Vital Signs Date Time Temp Pulse Resp B/P (MAP) Pulse Ox O2 Delivery O2 Flow Rate FiO2 12/21/20 08:03 Room Air 12/21/20 07:00 98.0 52 16 97/47 (64) 97 98.0 12/20/20 18:17 6.0 Intake and Output 12/21/20 07:00 Intake Total 3300 ml Output Total 960 ml Balance 2340 ml Intake Oral 800 ml IV Total 2500 ml Output Urine Total 950 ml Estimated Blood Loss 10 ml Physical Exam Abdomen: Soft Plan Plan of Care ok to discharge Comment Review of Relevant I have reviewed the following items duy (where applicable) has been applied. Labs Laboratory Tests Test 12/20/20 03:20 12/20/20 03:25 Sodium Level 140 mmol/L (136-145) Potassium Level 3.8 mmol/L (3.5-5.1) Chloride Level 103 mmol/L (98-107) Carbon Dioxide Level 30 mmol/L (21-32) Anion Gap 7 (6-14) Blood Urea Nitrogen 12 mg/dL (8-26) Creatinine 1.1 mg/dL (0.7-1.3) Estimated GFR (Cockcroft-Gault) 82.2 BUN/Creatinine Ratio 11 (6-20) Glucose Level 103 mg/dL (70-99) Calcium Level 8.5 mg/dL (8.5-10.1) Total Bilirubin 0.8 mg/dL (0.2-1.0) Aspartate Amino Transf (AST/SGOT) 15 U/L (15-37) Alanine Aminotransferase (ALT/SGPT) 18 U/L (16-63) Alkaline Phosphatase 59 U/L (46-116) Total Protein 6.8 g/dL (6.4-8.2) Albumin 3.4 g/dL (3.4-5.0) Albumin/Globulin Ratio 1.0 (1.0-1.7) White Blood Count 9.4 x10^3/uL (4.0-11.0) Red Blood Count 4.66 x10^6/uL (4.30-5.70) Hemoglobin 13.8 g/dL (13.0-17.5) Hematocrit 40.2 % (39.0-53.0) Mean Corpuscular Volume 86 fL (79-100) Mean Corpuscular Hemoglobin 30 pg (25-35) Mean Corpuscular Hemoglobin Concent 34 g/dL (31-37) Red Cell Distribution Width 12.9 % (11.5-14.5) Platelet Count 176 x10^3/uL (140-400) Neutrophils (%) (Auto) 72 % (31-73) Lymphocytes (%) (Auto) 19 % (24-48) Monocytes (%) (Auto) 8 % (0-9) Eosinophils (%) (Auto) 0 % (0-3) Basophils (%) (Auto) 0 % (0-3) Neutrophils # (Auto) 6.7 x10^3/uL (1.8-7.7) Lymphocytes # (Auto) 1.8 x10^3/uL (1.0-4.8) Monocytes # (Auto) 0.8 x10^3/uL (0.0-1.1) Eosinophils # (Auto) 0.0 x10^3/uL (0.0-0.7) Basophils # (Auto) 0.0 x10^3/uL (0.0-0.2) Medications Current Medications Ondansetron HCl (Zofran) 4 mg PRN Q6HRS PRN IVP NAUSEA/VOMITING Last administered on 12/20/20at 18:17; Start 12/20/20 at 01:45 Fentanyl Citrate (Fentanyl 2ml Vial) 25 mcg PRN Q3HRS PRN IVP PAIN Last administered on 12/20/20at 18:17; Start 12/20/20 at 01:45 Sodium Chloride 1,000 ml @ 75 mls/hr [id number] IV Last administered on 12/21/20at 04:50; Start 12/20/20 at 01:45 Piperacillin Sod/ Tazobactam Sod 3.375 gm/Sodium Chloride 50 ml @ 100 mls/hr Q6HRS IV Last administered on 12/21/20at 06:07; Start 12/20/20 at 06:00 Ketorolac Tromethamine (Toradol 30mg Vial) 30 mg PRN Q6HRS PRN IVP INFLAMMATION Last administered on 12/20/20at 20:52; Start 12/20/20 at 07:15 Bupivacaine HCl/ Epinephrine Bitart (Sensorcain-Epi 0.25% Kit) 30 ml STK-MED ONCE .ROUTE Last administered on 12/20/20at 13:30; Start 12/20/20 at 12:21; Stop 12/20/20 at 12:21; Status DC Fentanyl Citrate (Fentanyl 2ml Vial) 100 mcg STK-MED ONCE .ROUTE ; Start 12/20/20 at 12:49; Stop 12/20/20 at 12:49; Status DC Midazolam HCl (Versed) 2 mg STK-MED ONCE .ROUTE ; Start 12/20/20 at 12:49; Stop 12/20/20 at 12:49; Status DC Succinylcholine Chloride (Anectine) 200 mg STK-MED ONCE .ROUTE ; Start 12/20/20 at 12:53; Stop 12/20/20 at 12:54; Status DC Fentanyl Citrate (Fentanyl 2ml Vial) 100 mcg STK-MED ONCE .ROUTE ; Start 12/20/20 at 13:09; Stop 12/20/20 at 13:10; Status DC Propofol (Diprivan) 200 mg STK-MED ONCE IV ; Start 12/20/20 at 13:14; Stop 12/20/20 at 13:14; Status DC Lidocaine HCl (Lidocaine Pf 2% Vial) 5 ml STK-MED ONCE .ROUTE ; Start 12/20/20 at 13:14; Stop 12/20/20 at 13:14; Status DC Dexamethasone Sodium Phosphate (Decadron) 4 mg STK-MED ONCE .ROUTE ; Start 12/20/20 at 13:14; Stop 12/20/20 at 13:14; Status DC Ondansetron HCl (Zofran) 4 mg STK-MED ONCE .ROUTE ; Start 12/20/20 at 13:14; Stop 12/20/20 at 13:14; Status DC Glycopyrrolate (Robinul) 1 mg STK-MED ONCE .ROUTE ; Start 12/20/20 at 13:14; Stop 12/20/20 at 13:14; Status DC Neostigmine Methylsulfate (Bloxiverz) 10 mg STK-MED ONCE .ROUTE ; Start 12/20/20 at 13:14; Stop 12/20/20 at 13:15; Status DC Ketorolac Tromethamine (Toradol 30mg Vial) 30 mg STK-MED ONCE .ROUTE ; Start 12/20/20 at 13:25; Stop 12/20/20 at 13:25; Status DC Fentanyl Citrate (Fentanyl 2ml Vial) 25 mcg PRN Q5MIN PRN IVP MILD PAIN 1-3; Start 12/20/20 at 13:45; Stop 12/21/20 at 13:44 Fentanyl Citrate (Fentanyl 2ml Vial) 50 mcg PRN Q5MIN PRN IVP MODERATE PAIN 4-6 Last administered on 12/20/20at 14:38; Start 12/20/20 at 13:45; Stop 12/21/20 at 13:44 Morphine Sulfate (Morphine Sulfate) 1 mg PRN Q10MIN PRN IVP SEVERE PAIN 7-10 Last administered on 12/20/20at 14:14; Start 12/20/20 at 13:45; Stop 12/21/20 at 13:44 Ringer's Solution 1,000 ml @ 30 mls/hr Q24H IV ; Start 12/20/20 at 13:45; Stop 12/21/20 at 01:44; Status DC Hydromorphone HCl (Dilaudid) 0.5 mg PRN Q10MIN PRN IVP SEVERE PAIN 7-10, 2nd CHOICE; Start 12/20/20 at 13:45; Stop 12/21/20 at 13:44 Prochlorperazine Edisylate (Compazine) 5 mg PACU PRN PRN IVP NAUSEA, MRX1; Start 12/20/20 at 13:45; Stop 12/21/20 at 13:44 Oxycodone/ Acetaminophen (Percocet 5/325) 1 tab PRN Q4HRS PRN PO MILD-MODERATE PAIN; Start 12/20/20 at 13:45 Oxycodone/ Acetaminophen (Percocet 5/325) 2 tab PRN Q4HRS PRN PO SEVERE PAIN Last administered on 12/21/20at 08:03; Start 12/20/20 at 13:45 Fentanyl Citrate (Fentanyl 2ml Vial) 100 mcg STK-MED ONCE .ROUTE ; Start 12/20/20 at 13:55; Stop 12/20/20 at 13:55; Status DC Morphine Sulfate (Morphine Sulfate) 2 mg STK-MED ONCE .ROUTE ; Start 12/20/20 at 13:55; Stop 12/20/20 at 13:55; Status DC Fentanyl Citrate (Fentanyl 2ml Vial) 100 mcg STK-MED ONCE .ROUTE ; Start 12/20/20 at 14:26; Stop 12/20/20 at 14:26; Status DC Zolpidem Tartrate (Ambien) 5 mg PRN QHS PRN PO INSOMNIA; Start 12/20/20 at 18:30 Famotidine (Pepcid Vial) 20 mg 1X ONCE IVP Last administered on 12/20/20at 20:09; Start 12/20/20 at 18:30; Stop 12/20/20 at 18:31; Status DC Vitals/I & O Vital Sign - Last 24 Hours 12/20/20 12/20/20 12/20/20 12/20/20 11:00 12:21 13:42 13:42 Temp 98.5 98.2 98.4 98.5 98.2 98.4 Pulse 103 87 87 Resp 18 16 16 B/P (MAP) 114/71 (85) 126/61 134/65 Pulse Ox 97 99 100 O2 Delivery Room Air Room Air Simple Mask Mask O2 Flow Rate 6 6 12/20/20 12/20/20 12/20/20 12/20/20 13:55 13:59 14:00 14:04 Pulse 74 Resp 16 16 16 16 B/P (MAP) 140/65 Pulse Ox 100 100 100 100 O2 Delivery Simple Mask Simple Mask Simple Mask O2 Flow Rate 6 6.0 6.0 6.0 12/20/20 12/20/20 12/20/20 12/20/20 14:10 14:14 14:20 14:24 Pulse 78 78 Resp 16 16 16 B/P (MAP) 118/62 127/63 Pulse Ox 100 100 100 O2 Delivery Room Air Room Air Room Air Room Air 12/20/20 12/20/20 12/20/20 12/20/20 14:29 14:38 15:00 18:16 Temp 97.8 97.8 Pulse 70 Resp 16 16 18 B/P (MAP) 124/70 (88) Pulse Ox 96 96 93 93 O2 Delivery Room Air Room Air Room Air Room Air O2 Flow Rate 6.0 12/20/20 12/20/20 12/20/20 12/20/20 18:17 19:00 20:05 23:00 Temp 97.9 98.0 97.9 98.0 Pulse 88 85 Resp 16 16 B/P (MAP) 104/52 (69) 106/53 (70) Pulse Ox 93 93 97 O2 Delivery Room Air Room Air Room Air Room Air O2 Flow Rate 6.0 12/20/20 12/20/20 12/21/20 12/21/20 23:18 23:48 03:00 07:00 Temp 97.5 98.0 97.5 98.0 Pulse 73 52 Resp 18 16 16 B/P (MAP) 106/55 (72) 97/47 (64) Pulse Ox 93 96 97 O2 Delivery Room Air Room Air Room Air Room Air 12/21/20 08:03 O2 Delivery Room Air Intake and Output 12/20/20 12/20/20 12/21/20 15:00 23:00 07:00 Intake Total 450 ml 2850 ml Output Total 60 ml 250 ml 650 ml Balance 390 ml -250 ml 2200 ml Justifications for Admission Abdominal Pain Indications Is patient in severe pain?: Yes Is NPO status required?: Yes Other Justification ROLAND NYE MD Dec 21, 2020 09:24
[2020-12-21 09:55] LABS: BASO % 0 % (0-3); EOS % 0 % (0-3); HEMATOCRIT 38.8 % (39.0-53.0); HEMOGLOBIN 13.1 g/dL (13.0-17.5); LYMPH # 1.6 x10^3/uL (1.0-4.8); LYMPH % 18 % (24-48); MEAN CORPUSCULAR HEMOGLOBIN 30 pg (25-35); MEAN CORPUSCULAR HGB CONC 34 g/dL (31-37); MEAN CORPUSCULAR VOLUME 88 fL (79-100); MONO # 0.6 x10^3/uL (0.0-1.1); MONO % 7 % (0-9); NEUT # 6.5 x10^3/uL (1.8-7.7); NEUT % 75 % (31-73); PLATELET COUNT 171 x10^3/uL (140-400); RED BLOOD COUNT 4.42 x10^6/uL (4.30-5.70); RED CELL DISTRIBUTION WIDTH 12.9 % (11.5-14.5); WHITE BLOOD COUNT 8.7 x10^3/uL (4.0-11.0)
[2020-12-21] MEDS ORDERED: ONDANSETRON ODT 4 MG TAB.RAPDIS. PO PRN (10:00)
--- NOTE | 2020-12-21 10:00 | NUR ---
Ate breakfast and tolerated well until pt got up to ambulated and sat in chair c/o nause.Vomited about 300cc of food particles. Zofran IV given. Rinsed mouth out and stayed in chair. Father at bedside. Cont. Monitor.
[2020-12-21] MEDS ORDERED: TRAM50TA PO (10:02)
[2020-12-21] MEDS ORDERED: ONDA4TAB12 PO (10:02)
--- NOTE | 2020-12-21 10:04 | PDOC3 ---
Discharge Summary Visit Information Date of Admission: Dec 20, 2020 Date of Discharge: Dec 21, 2020 Admitting Diagnosis Comment: Appendicitis Final Diagnosis Appendicitis Brief Hospital Course Allergies Allergies Coded Allergies Type Severity Reaction Last Updated Verified cephalexin Allergy Unknown 12/20/20 Yes Vital Signs Vital Signs Date Time Temp Pulse Resp B/P (MAP) Pulse Ox O2 Delivery O2 Flow Rate FiO2 12/21/20 08:03 Room Air 12/21/20 07:00 98.0 52 16 97/47 (64) 97 98.0 12/20/20 18:17 6.0 Lab Results Laboratory Tests Test 12/20/20 03:20 12/20/20 03:25 12/21/20 09:35 Sodium Level 140 mmol/L (136-145) Potassium Level 3.8 mmol/L (3.5-5.1) Chloride Level 103 mmol/L (98-107) Carbon Dioxide Level 30 mmol/L (21-32) Anion Gap 7 (6-14) Blood Urea Nitrogen 12 mg/dL (8-26) Creatinine 1.1 mg/dL (0.7-1.3) Estimated GFR (Cockcroft-Gault) 82.2 BUN/Creatinine Ratio 11 (6-20) Glucose Level 103 mg/dL (70-99) Calcium Level 8.5 mg/dL (8.5-10.1) Total Bilirubin 0.8 mg/dL (0.2-1.0) Aspartate Amino Transf (AST/SGOT) 15 U/L (15-37) Alanine Aminotransferase (ALT/SGPT) 18 U/L (16-63) Alkaline Phosphatase 59 U/L (46-116) Total Protein 6.8 g/dL (6.4-8.2) Albumin 3.4 g/dL (3.4-5.0) Albumin/Globulin Ratio 1.0 (1.0-1.7) White Blood Count 9.4 x10^3/uL (4.0-11.0) 8.7 x10^3/uL (4.0-11.0) Red Blood Count 4.66 x10^6/uL (4.30-5.70) 4.42 x10^6/uL (4.30-5.70) Hemoglobin 13.8 g/dL (13.0-17.5) 13.1 g/dL (13.0-17.5) Hematocrit 40.2 % (39.0-53.0) 38.8 % (39.0-53.0) Mean Corpuscular Volume 86 fL (79-100) 88 fL (79-100) Mean Corpuscular Hemoglobin 30 pg (25-35) 30 pg (25-35) Mean Corpuscular Hemoglobin Concent 34 g/dL (31-37) 34 g/dL (31-37) Red Cell Distribution Width 12.9 % (11.5-14.5) 12.9 % (11.5-14.5) Platelet Count 176 x10^3/uL (140-400) 171 x10^3/uL (140-400) Neutrophils (%) (Auto) 72 % (31-73) 75 % (31-73) Lymphocytes (%) (Auto) 19 % (24-48) 18 % (24-48) Monocytes (%) (Auto) 8 % (0-9) 7 % (0-9) Eosinophils (%) (Auto) 0 % (0-3) 0 % (0-3) Basophils (%) (Auto) 0 % (0-3) 0 % (0-3) Neutrophils # (Auto) 6.7 x10^3/uL (1.8-7.7) 6.5 x10^3/uL (1.8-7.7) Lymphocytes # (Auto) 1.8 x10^3/uL (1.0-4.8) 1.6 x10^3/uL (1.0-4.8) Monocytes # (Auto) 0.8 x10^3/uL (0.0-1.1) 0.6 x10^3/uL (0.0-1.1) Eosinophils # (Auto) 0.0 x10^3/uL (0.0-0.7) 0.0 x10^3/uL (0.0-0.7) Basophils # (Auto) 0.0 x10^3/uL (0.0-0.2) 0.0 x10^3/uL (0.0-0.2) Laboratory Tests Test 12/21/20 09:35 White Blood Count 8.7 x10^3/uL (4.0-11.0) Red Blood Count 4.42 x10^6/uL (4.30-5.70) Hemoglobin 13.1 g/dL (13.0-17.5) Hematocrit 38.8 % (39.0-53.0) Mean Corpuscular Volume 88 fL (79-100) Mean Corpuscular Hemoglobin 30 pg (25-35) Mean Corpuscular Hemoglobin Concent 34 g/dL (31-37) Red Cell Distribution Width 12.9 % (11.5-14.5) Platelet Count 171 x10^3/uL (140-400) Neutrophils (%) (Auto) 75 % (31-73) Lymphocytes (%) (Auto) 18 % (24-48) Monocytes (%) (Auto) 7 % (0-9) Eosinophils (%) (Auto) 0 % (0-3) Basophils (%) (Auto) 0 % (0-3) Neutrophils # (Auto) 6.5 x10^3/uL (1.8-7.7) Lymphocytes # (Auto) 1.6 x10^3/uL (1.0-4.8) Monocytes # (Auto) 0.6 x10^3/uL (0.0-1.1) Eosinophils # (Auto) 0.0 x10^3/uL (0.0-0.7) Basophils # (Auto) 0.0 x10^3/uL (0.0-0.2) Brief Hospital Course Mr. Minaya is a 25 old [sex] who presented with [ ] Discharge Information Condition at Discharge: Improved Follow Up: Weeks (2) Disposition/Orders: D/C to Home Scheduled PRN Ondansetron (Ondansetron Odt) 4 Mg Tab.rapdis, 4 MG PO PRN Q4HRS PRN for NAUSEA for 10 Days, #30 Prescribed by: ENID STEPHEN MD on 12/21/20 1002 Tramadol Hcl (Tramadol Hcl) 50 Mg Tablet, 50 MG PO PRN Q6HRS PRN for PAIN for 5 Days, #20 Prescribed by: ENID STEPHEN MD on 12/21/20 1002 Justicifation of Admission Dx: Justifications for Admission: Justification of Admission Dx: Yes ENID STEPHEN MD Dec 21, 2020 10:04
[2020-12-21 10:35] LABS: ALBUMIN 2.9 g/dL (3.4-5.0); ALBUMIN/GLOBULIN RATIO 0.9 (1.0-1.7); CALCIUM 7.9 mg/dL (8.5-10.1); CREATININE 1.1 mg/dL (0.7-1.3); GFR 82.2; POTASSIUM 3.6 mmol/L (3.5-5.1); TOTAL BILIRUBIN 0.6 mg/dL (0.2-1.0); TOTAL PROTEIN 6.3 g/dL (6.4-8.2)
[2020-12-21] MEDS: ONDANSETRON PF 4 MG/2 ML VIAL. IVP PRN (10:38)
[2020-12-21] MEDS: fentaNYL PF VIAL 100 MCG/2 ML VIAL IVP PRN (10:45)
[2020-12-21 11:00] VITALS: BP 89/49
[2020-12-21] MEDS: traMADol 50 MG TABLET PO PRN ×2 (12:46→17:40)
[2020-12-21 15:00] VITALS: BP 105/52
--- NOTE | 2020-12-21 16:00 | NUR ---
Up out of bed. Ambulating in room. Requesting to go home. Feeling better. Abdominal binder placed for comfort. Notified Dr. Bob and got orders discharge home.
--- NOTE | 2020-12-21 17:14 | PATHOLOGY ---
[facility] Accession Number: [id number] . 01 Material submitted: . appendix - APPENDIX . 01 Clinical history: . APPENDICITIS L/S APPENDECTOMY . 01 Frozen section diagnosis: . . . /QLM . 02 Diagnosis: Appendix, laparoscopic appendectomy: - Acute appendicitis. . ([facility]:mm; 12/21/2020) [facility] 12/21/2020 1408 Local . 02 Comment: There is no evidence of rupture. . ([facility]:mm; 12/21/2020) . 02 Electronically signed: . Thien Moss MD, Pathologist NPI- [id number] . 01 Gross description: . Fixative: Formalin Labeled: Appendix Appendix length: 6.5 cm Appendix diameter: Up to 0.6 cm Mesoappendix: Up to 1.6 cm Proximal margin: Stapled Serosa: Light pedraza-pink and smooth to focally roughened Cut surface: Patent to dilated hemorrhagic lumen Luminal diameter: 0.4 cm Perforation: None identified Lesions/abnormalities: None identified A1 Proximal margin (inked black) and distal tip, bisected A2 Mid appendix ([facility]; 12/20/2020) [facility] 12/20/2020 1755 Local . 02 Pathologist provided ICD-10: K35.80 . 02 CPT . 542009 Specimen Comment: A courtesy copy of this report has been sent to [phone], [phone] Specimen Comment: [id number] Specimen Comment: Report sent to / DR RODRIGUEZ Specimen Comment: A duplicate report has been generated due to demographic updates. Performed at: 01 [facility] [address], [place], [place] [id number] MD Martin Davila MD Phone: [phone] Performed at: 02 [facility] [address] [place], [place] [id number] MD Thien Moss MD Phone: [phone]
--- NOTE | 2020-12-21 17:59 | NUR ---
Discharge instructions given. Answered questions and concerns. Verbalized understanding. Pain med and zofran given prior to discharge. Escorted out by w/c accompanied by father.
[2020-12-21] MEDS ORDERED: LACTOBACILLUS RHAMNOSUS GG 1 CAPSULE. PO SCH (21:00)
== END 2020-12-21 18:00 | disposition home or self-care (01) | DRG 854 ==
LOC: 4 SOUTHEST 00:30 → 4 NORTH 15:13
PROVIDERS: ADMIT Internal Medicine; ATTEND Internal Medicine
PROC: 0DTJ4ZZ Resection of Appendix, Percutaneous Endoscopic Approach (ICD-10-PCS; principal; 2020-12-20 13:00)
DX: A41.9 Sepsis, unspecified organism (principal); K35.80 Unspecified acute appendicitis; Z20.822 Contact with and (suspected) exposure to COVID-19; Z83.3 Family history of diabetes mellitus; Z88.8 Allergy status to other drugs, medicaments and biological substances
CPT/HCPCS: 36415; 80053; 85025; 88304; A4314; A4930; J0330; J1100; J1885; J2250; J2270; J2405; J2543; J2704; J2710; J3010; J3490; J7030; G0378